=== PATIENT | male | born 1965 | race Caucasian/White ===

== ENCOUNTER → 2024-11-12 13:19 | Outpatient (REF) | payer BC, SELFPAY | LOC: RCS 13:19 | PROVIDERS: ATTENDING PHYSICIAN Internal Medicine Cardiovascular Disease | DX: R07.9 Chest pain, unspecified (principal); E11.9 Type 2 diabetes mellitus without complications; I70.90 Unspecified atherosclerosis | CPT/HCPCS: 93017; 93350 ==